=== PATIENT | female | born 1975 | race Caucasian/White ===

== ENCOUNTER → 2016-12-28 | Day surgery (SDC) | payer OTHER ==
[~2016-12-28] MED LIST: ASPIR-TRIN325 MG PO; AZO CRANBERRY1 EACH PO; B-121000 MC1 PO; DAYPRO600 M1 PO; LANTUS100 U/ML SUBQ; LIPITOR40 MG PO; LOSARTAN POTASS50 MG PO; METFORMIN HCL500 M1 PO; PROBIOTIC1 EAC5 PO; VITAMIN D250000 UNIT PO
--- NOTE | ~2016-12-28 | OR ---
Unit #: [id number] #: [id number] Patient: JESSICA GUTIERREZ [id number] [address] [place], [place] [address] [id number] O MR#: [id number] NAME: JESSICA GUTIERREZ ROOM: Date of Procedure: 12/28/2016 Admission Date: 12/28/2016 Surgeon: William Orozco Jr., M.D. : 1975 Attending Physician: William Orozco Jr., M.D. Primary Care Physician: Austin Bills OPERATIVE REPORT INDICATION FOR PROCEDURE The patient is a 41-year-old white female, who has been having recent problems with abdominal pains mostly in the lower abdomen, also some rectal bleeding and some large hemorrhoids. She is brought in this time for colonoscopy at her request. She has had no recent colonoscopy. PREOPERATIVE DIAGNOSES Rectal bleeding with abdominal pain, rule out colitis. POSTOPERATIVE DIAGNOSES The patient was noted to have large external hemorrhoids and a small 2 to 3 mm polyp in the transverse colon, which was removed and no other specific abnormalities in the distal ileum. ANESTHESIA MAC anesthesia PROCEDURE PERFORMED Flexible colonoscopy to the distal ileum with snare polypectomy of a small 2 to 3 mm polyp in the transverse colon. DESCRIPTION OF PROCEDURE The patient was positioned in Locke position with left side down. After being given MAC anesthesia, digital rectal examination was performed, which revealed no palpable mass or tenderness. No blood or stool within the rectal ampulla. There were large dilated external hemorrhoids circumferentially. The Olympus colonoscope was advanced through the anal canal up the rectum and retroflexed down to the area of the anorectal region. There were few small internal hemorrhoids, felt to be of no major significance. There was no evidence of any active bleeding. No evidence of any fissures. The scope was then straightened and advanced up the rectosigmoid, in the sigmoid and descending colon areas, around the splenic flexure and the transverse colon and in the mid transverse colon, there was approximately a 2 to 3 mm polyp, which was snared, suctioned out through the suction port and sent to pathology. The base was well coagulated with no evidence of any bleeding or significant burn or perforation. The scope was then advanced around the hepatic flexure and ascending colon down in the area of the cecum. The light from the tip of the scope could be seen transilluminating through the right lower quadrant abdominal wall area. The scope was advanced up the distal ileum approximately 10 to 12 inches. There was no evidence of any ileitis or Unit #: [id number] #: [id number] Patient: JESSICA GUTIERREZ inflammatory bowel disease. The scope was slowly removed. There were no tumors except for the one polyp. No other polyps, no cancer, no AVMs. No evidence of any colitis, diverticulosis, or diverticulitis. The caliber of the colon appeared normal throughout without evidence of narrowing or obstruction. The scope was removed. The patient tolerated the procedure well and discharged in satisfactory condition. Dictated by... William Orozco Jr., MChuckie. JONATHON/erick TD: 12/28/2016 11:34 JOB #: [id number] OPERATIVE REPORT Page 1 of 1 X William Orozco MD X PROCEDURE OPERATIVE NOTE
== END | disposition home or self-care (01) ==
LOC: COPS 05:47
DX: D12.3 Benign neoplasm of transverse colon (principal); K64.4 Residual hemorrhoidal skin tags; K64.8 Other hemorrhoids; E11.9 Type 2 diabetes mellitus without complications; I10 Essential (primary) hypertension; E78.5 Hyperlipidemia, unspecified; Z79.4 Long term (current) use of insulin; Z79.82 Long term (current) use of aspirin; Z79.899 Other long term (current) drug therapy
CPT/HCPCS: 82947; 84703; 88305

== ENCOUNTER → 2016-12-29 | Outpatient (CLI) | payer OTHER ==
--- NOTE | ~2016-12-29 | CT2 ---
[facility] A Service of [facility] & [facility] RADIOLOGY TEXT RESULTS PATIENT: JESSICA GUTIERREZ [facility] [birth year] UNIT #: [id number] AGE: [address]: William Orozco MD SEX: F ORDER DR: [id number] [facility] [address] [place], [place] [address] [id number] O MR#: [id number] #: [id number] NAME: JESSICA GUTIERREZ : 1975 SEX: F STUDY DATE/TIME: 12/29/2016 15:14 UNIT: [facility] ROOM: STUDY DESCRIPTION: CT Abd and Pelv W Cont Attending Physician: William Orozco Jr., M.D. Referring Physician: William Orozco Jr., M.D. Ordering Physician: William Orozco Jr., M.D. Primary Care Physician: Austin Bills MEDICAL IMAGING REPORT This report is preliminary unless electronic signature is present EXAM CT of the abdomen and pelvis with contrast INDICATIONS Mid abdominal pain and burning sensation for [address] images were obtained from the dome of the diaphragm through the symphysis pubis following administration of oral and intravenous contrast material. This CT exam was performed with one or more of the following radiation dose reduction techniques: automatic exposure control, adjustment of mA and/or kV according to patient size, and iterative reconstruction. FINDINGS Images through the lung bases are clear. Stomach and proximal small bowel are within normal limits as are the spleen, pancreas, adrenal glands and kidneys. Gallbladder also appears unremarkable as does the liver. No free fluid or adenopathy is seen within the abdomen and there is no evidence of mechanical bowel obstruction. The appendix is visualized and is within normal limits. Patient does appear to have left adnexal cysts which appear smaller than on the prior CT from October 31, 2015 which would suggest that they are benign. Urinary bladder appears unremarkable. Patient does have some colonic diverticulosis but I do not see any convincing evidence of diverticulitis. The appendix is visualized and is within normal limits. On some of the images, particularly the coronal and sagittal reformatted images, there is a suggestion that the ovarian cyst is actually tubular in shape and could reflect hydrosalpinx. This could be better assessed with pelvic ultrasound. [facility] A Service of [facility] RADIOLOGY TEXT RESULTS PATIENT: JESSICA GUTIERREZ LOCATION: [facility] : 71 UNIT #: [id number] AGE: [address]: William Orozco MD SEX: F ORDER DR: Review of bony windows does not demonstrate any aggressive osseous abnormalities. IMPRESSION There is a low-attenuation structure seen within the left lower quadrant which could reflect an adnexal cyst that was present on prior exam from October 2015 and actually appears smaller. However, on coronal and sagittal images there is suggestion that this is actually a tubular structure and the possibility that this reflects hydrosalpinx is certainly not excluded. This could be better assessed with pelvic ultrasound. Remainder of the study is remarkable only for some diverticulosis and I do not see any evidence of diverticulitis on today's examination. Please see the body of the report for any other additional incidental findings. Dictated by... Laura Manuel M.D. THIS IS AN ELECTRONICALLY VERIFIED REPORT Laura Manuel M.D. at 12/30/2016 5:41 PM MICK/zachery TD: 12/30/2016 05:03 JOB #: [id number] MEDICAL IMAGING REPORT Page 1 of 1 COPY
[2016-12-30 06:41] LABS: POC - CREATININE 0.68 mg/dL (0.44-1.03); POC - GFR >60.0 mL/min (>60)
== END | disposition home or self-care (01) ==
LOC: CCAT 13:07
PROVIDERS: Surgery
DX: R10.13 Epigastric pain (principal); G89.29 Other chronic pain; R19.4 Change in bowel habit; K57.90 Diverticulosis of intestine, part unspecified, without perforation or abscess without bleeding
CPT/HCPCS: 74177; 82565; Q9967

== ENCOUNTER → 2017-01-07 | Outpatient (CLI) | payer OTHER ==
--- NOTE | ~2017-01-07 | US98 ---
[facility] A Service of [facility] & [facility] RADIOLOGY TEXT RESULTS PATIENT: JESSICA GUTIERREZ LOCATION: [facility] : 71 UNIT #: [id number] AGE: [address]: William Orozco MD SEX: F ORDER DR: [id number] [facility] [address] [place], [place] [address] [id number] O MR#: [id number] Acc #: [id number] NAME: JESSICA GUTIERREZ : 1975 SEX: F STUDY DATE/TIME: 01/07/2017 8:04 UNIT: [facility] ROOM: STUDY DESCRIPTION: US Pelvic Non-OB Complete Attending Physician: William Orozco Jr., M.D. Referring Physician: William Orozco Jr., M.D. Ordering Physician: William Orozco Jr., M.D. Primary Care Physician: William Orozco Jr., M.D. MEDICAL IMAGING REPORT This report is preliminary unless electronic signature is present EXAM Transabdominal and transvaginal pelvic ultrasound. DATE 01/07/2017 HISTORY 41-year-old female with abdominal bloating for years, worse over the past 2-3 weeks more consistently. Left adnexal cystic structure versus hydrosalpinx on recent CT. COMPARISON CT abdomen and pelvis 12/29/2016, 10/31/2015. FINDINGS Transabdominal imaging was performed for generalized visualization of pelvic structures, while transvaginal imaging was performed for more detailed evaluation of the adnexal regions. The uterus measures 8.9 x 5.3 x 5.9 cm. Endometrial bilayer measures 1.3 cm thickness, which is within normal limits. Small submucosal cyst is demonstrated within the endometrial bilayer measuring about 4 x 5 mm. Small cervical nabothian cysts are noted. Trace free fluid is demonstrated in the pelvic cul-de-sac. The left ovary measures 4.8 x 4.1 x 1.9 cm and contains a complex cystic component with internal septations measuring 3.9 x 1.5 x 2.7 cm. The left ovary demonstrates normal color and spectral Doppler flow. No evidence of hydrosalpinx. Trace fluid is seen within the left adnexa, adjacent to the ovary. The right ovary cannot be satisfactorily visualized, either in transabdominal or transvaginal imaging. [facility] A Service of [facility] & [facility] RADIOLOGY TEXT RESULTS PATIENT: JESSICA GUTIERREZ LOCATION: [facility] : 71 UNIT #: [id number] AGE: [address]: William Orozco MD SEX: F ORDER DR: IMPRESSION 1. Mildly complex but benign appearing left ovarian cyst measuring up to 3.9 cm. No indication of hydrosalpinx. 2. Trace free fluid is seen adjacent to the left ovary and within the pelvic cul-de-sac which may be physiologic or related to cyst rupture. 3. Normal appearance of the uterus and endometrium. Incidental note is made of benign submucosal cysts in the endometrial canal measuring about 4-5 mm. 4. Small cervical nabothian cysts. 5. Normal flow is documented to left ovary. 6. The right ovary could not be visualized either transabdominally or transvaginally. Dictated by... Fernanda Tovar M.D. THIS IS AN ELECTRONICALLY VERIFIED REPORT Fernanda Tovar M.D. at 01/14/2017 8:36 AM KRIS/eris TD: 01/08/2017 13:00 JOB #: [id number] MEDICAL IMAGING REPORT Page 1 of 1 COPY
== END | disposition home or self-care (01) ==
LOC: CWCC 07:08
DX: N70.11 Chronic salpingitis (principal); N83.202 Unspecified ovarian cyst, left side; N88.8 Other specified noninflammatory disorders of cervix uteri
CPT/HCPCS: 76830; 76856